=== PATIENT | female | born 1990 | race Caucasian/White ===

== ENCOUNTER 2016-11-27 23:49 | Emergency (ER) | payer OTHER ==
[2016-11-28] MEDS ORDERED: ASPIRIN 81 MG CHEW TAB ONE (00:06)
== END 2016-11-28 01:19 | disposition home or self-care (01) ==
LOC: ER 23:49
CPT/HCPCS: 36415; 71010; 80053; 82550; 83735; 84484; 85025; 85610; 85730; 93005